=== PATIENT | female | born 1975 | race Caucasian/White ===

== ENCOUNTER → 2021-08-18 | Outpatient (CLI) | payer OTHER ==
[~2021-08-18] MED LIST: ALL DAY ALLERGY10 M3 PO; COLACE 100MG C100 MG PO; FIBER LAX625 MG PO; FLUCONAZOLE100 MG PO; HYDROCHLOROTHIA25 MG PO; IBUPROFEN800 MG PO; LEVOTHYROXINE100 MCG PO; MIRALAX17 GM PO; ONDANSETRON ODT8 MG PO; PANTOPRAZOLE SO40 MG PO; POTASSIUM CHLO20 MEQ PO; PROPAFENONE HC150 MG PO; SUCRALFATE1 GM PO; VIT D PO
== END ==
LOC: CATH 09:32
DX: R55 Syncope and collapse (principal); Z95.0 Presence of cardiac pacemaker